=== PATIENT | male | born 1960 | race Caucasian/White ===

== ENCOUNTER 2019-11-10 09:52 | Inpatient (IN) | payer BC, OTHER, SELFPAY ==
[2019-11-10] VITALS (10 sets, daily range): BP systolic 191–267; BP diastolic 87–101; PULSE 63–86; RESP 13–18; TEMP 36.5–36.7; O2SAT 95–97; BMI 40.4; BMI 39.2
--- NOTE | 2019-11-10 09:57 | NURSING ---
NO OLD EKGS
--- NOTE | 2019-11-10 10:16 | EKG12_ITS ---
Test Reason : NEURO Blood Pressure : / mmHG Vent. Rate : 072 BPM Atrial Rate : 072 BPM P-R Int : 136 ms QRS Dur : 104 ms QT Int : 388 ms P-R-T Axes : -04 007 023 degrees QTc Int : 424 ms Normal sinus rhythm Voltage criteria for left ventricular hypertrophy Nonspecific T wave abnormality Abnormal ECG Confirmed by NIKI BRIDGES, CATIE ([id number]), news assignment editor ETHAN PISANO ([id number]) on 11/12/2019 11:25:53 AM Referred By: GABE Confirmed By:CATIE PRINCE MD
--- NOTE | 2019-11-10 10:17 | CT_ITS ---
STUDY: CT BRAIN WITHOUT CONTRAST REASON FOR EXAM: Male, 59 years old. Left facial droop RADIATION DOSAGE (If Supplied By Facility): CTDIvol = ( 44.99 ) mGy, DLP = ( 829.85 ) mGycm TECHNIQUE: Transaxial CT imaging of the brain was performed without administration of intravenous contrast material. Individualized dose optimization techniques were used for this CT. COMPARISON: None. FINDINGS: There is no acute bleed or infarct. There are normal white matter tracts. The ventricles are normal in configuration. There is no hydrocephalus. The visualized paranasal sinuses are clear. The mastoid air cells are well aerated. There is no skull fracture. CT/Brain/Head without Contrast IMPRESSION: No acute intracranial abnormality. Electronically Signed: Ralph Martin, at 10:44 EST Tel , Service support ,
--- NOTE | 2019-11-10 10:18 | ED.VIS.GEN ---
History of Present Illness Chief Complaint: Neuro S/Sx Informant: Patient Onset: Today Maximum Severity: Mild Narrative: The patient reports no past history. He presents with a reports that she noticed a left facial droop today 9 AM, he went to bed feeling fine, he reports he had lot of sinus congestion slight cough, he also stumbled today while walking and fell but did not strike his head, he is noted to have a blood pressure of 260/100 he denies a headache change in vision neck pain chest pain abdominal pain no numbness weakness paresthesias, The patient does not perceive in himself that he has a facial droop of any kind he indicates his speech is cranial nerve function his general health neurologic function are baseline, he has no history of hypertension [place] PE DVT stroke or seizure Past Medical History - Allergies and Home Meds Allergies/Adverse Reactions: Allergies Penicillins Allergy (Verified 11/10/19 10:02) Rash Primary Care Physician: Sade Olivo DO [NON-STAFF] - Past Medical History: - Smoking Status: Never smoker Review of Systems ROS: - Denies General: Denies: Chills, Fever, Sweats Eyes: Denies: Visual changes - bilaterally, Diplopia ENT: Reports: - - Congestion rhinorrhea and a slight cough that started last night. Denies: Rhinorrhea, Sore throat Cardiovascular: Denies: Chest pain, Palpitations Respiratory: Denies: Dyspnea, Cough, Dyspnea on exertion Gastrointestinal: Denies: Abdominal pain, Nausea, Vomiting, Diarrhea, Melena, Hematochezia Genitourinary: Denies: Dysuria, Hematuria, Frequency Musculoskeletal: Denies: Back pain, Extremity Pain Skin: Denies: Rash, Wounds Neurological: Denies: Headache, Weakness, Numbness Physical Exam Vital Signs/Narrative: Vital Signs Temp Pulse Resp BP Pulse Ox 11/10/19 09:55 97.8 F 79 17 267/101 H 96 General: Well nourished, Well developed, No Acute Distress Head: Normocephalic, Atraumatic Eyes: Perrl, EOMI ENT: Moist mucous membranes, No rhinorrhea, - - HEENT exam is generally unremarkable he does have a very subtle left facial droop his brow function is normal his smiling speech I function cranial nerve function otherwise normal his general medical exam neurologic exam are unremarkable his NIH would be 0-1, there is no definitive findings to suggest 7th nerve palsy Neck: Supple, Nontender Cardiovascular: Regular rate, Regular rhythm, No murmurs Respiratory: No distress, CTA bilaterally, Chest nontender Abdomen: Soft, Nontender, Nondistended, Normal bowel sounds Back: Nontender, Normal Inspection Extremities: Nontender, No edema Skin: Normal color, No rash Neurological: Alert, Oriented x3, Cranial nerves II-XII grossly intact, Normal Strength, Normal Sensation, Normal Gait, Left side facial droop, - - See above NIH 0-1. Negative for: Confused Psychological: Normal affect, Normal Mood Diagnostic/Tx/Re-eval - Medical Decision Making Given all of the above his hypertension he underwent screening ED evaluation with labs CT labetalol Patient's EKG shows a sinus rhythm rate of 70 no acute injury pattern intervals normal, the patient screening ED evaluation including labs chest x-ray head CT unremarkable, his blood pressure now was about 190/100 he is resting comfortably bed his neurologic exam is stable no changes in fact the facial droop might be slightly less prominent NIH still 0-1 at this time given all the above we talked the hospitalist seen for the management admission patient understands and agrees Admit stable Final impression left facial droop, possible stroke, hypertensive crisis ED Disposition - Plan for ED Patient: Diagnosis: Facial droop, Hypertensive crisis Referrals: Geovani,Sade, [NON-STAFF] -
[2019-11-10 10:24] LABS: Absolute Lymphocyte Count 1.74 X10^3/uL (0.83-4.51); Absolute Neutrophil Count 5.9 X10^3/uL (2.0-7.7); Basophil# 0.06 X10^3/uL; Basophil% 0.7 % (0-1); Eosinophil# 0.16 X10^3/uL; Eosinophils% 1.9 % (0-5); Hematocrit 46.5 % (40-54); Hemoglobin 15.2 g/dL (13.0-16.5); Lymphocyte # 1.74 X10^3/ul (4.0); Lymphocyte % 20.6 % (19-41); Mean Corp Hgb Conc 32.7 g/dL (32-36); Mean Corpuscular Hgb 28.1 pg (27.0-32.0); Mean Corpuscular Volume 86.1 fL (80-94); Mean Platelet Vol. 8.8 fl (6.2-12.0); Monocyte% 5.9 % (0-10); NRBC Flagged by Analyzer 0 % (0-5); Neutrophil # 5.94 X10^3/uL (2.7-7.7); Neutrophil % 70.5 % (47-70); Platelet Count 244 K/mm3 (150-450); RBC Distribution Width CV 14.2 % (11.6-14.6); RBC Distribution Width SD 44.3 fl (35.1-43.9); White Blood Count 8.4 K/mm3 (4.4-11.0)
--- NOTE | 2019-11-10 10:26 | RAD_ITS ---
STUDY: X-RAY CHEST REASON FOR EXAM: Male, 59 years old. Weakness TECHNIQUE: Frontal view of the chest COMPARISON: None. FINDINGS: The lungs are clear. There are no pleural effusions. There is no pneumothorax. The heart is enlarged. The visualized osseous structures are within normal limits. RAD/Chest 1 View (Portable) IMPRESSION: Cardiomegaly. Clear lungs. Electronically Signed: Ralph Martin, at 11:05 EST Tel , Service support ,
[2019-11-10 10:40] LABS: Anion Gap 5 (5-15); BUN 16 mg/dL (7-18); BUN/Creat Ratio 13.3 RATIO (10-20); Calcium,Total 9.3 mg/dL (8.5-10.1); Chloride 106 mmol/L (98-107); EST Glomerular Filtration Rate 65 mL/min (>60); Est Glom Filt Rate - Afr Amer 79 mL/min (>60); Estimated Creatinine Clearance 60.44 ml/min; Glucose 129 mg/dL (74-106); Potassium 3.9 mmol/L (3.5-5.1); Sodium Level 138 mmol/L (136-145)
--- NOTE | 2019-11-10 11:37 | NURSING ---
DR YORDY BERNAL
--- NOTE | 2019-11-10 11:42 | NURSING ---
PCU OBS KITTOE STROKE, HYPERTENSION
--- NOTE | 2019-11-10 11:44 | HP.PCM_ITS ---
Problem List (1) Facial droop Status: Acute (2) Hypertensive crisis Status: Acute (3) BMI greater than 40 Status: Chronic History of Present Illness Date of Admission: 11/10/19 Chief Complaint: Left facial droop The patient is a 59 year old M in relatively good health on no chronic medications who presented with left facial droop. Patient states he woke up on the morning of his presentation when his noticed that he had a facial droop. Patient also states he had difficulty walking and apparently fell. Patient and spoke to the daughter via face time who encourage patient to present to the emergency department. Patient upon arrival to the emergency department was noted to have markedly elevated systolic blood pressure of 260. On further questioning patient denied any subjective focal weakness no numbness. CT of the head obtained came back unremarkable subsequently admitted to a monitored bed for further evaluation Past Medical History Past Medical History (Chronic Problems): Chronic Problems BMI greater than 40 (Chronic) Allergies Penicillins Allergy (Verified 11/10/19 10:02) Rash Home Medications: Ambulatory Orders Medication Instructions Recorded NK 11/10/19 Smoking Status: Never smoker - *Family History Paternal History Items: Heart Disease - of [place] at age 67 Review of Systems Constitutional: Denies: Anorexia, Chills, Fever, Night Sweats, Weight Change HEENT: Denies: Head Aches, Sinus Congestion, Sinus Drainage Cardiovascular: Denies: Chest Pain, Orthopnea, Palpitations, Paroxysmal Noc. Dyspnea Respiratory: Denies: Cough, Shortness of breath at rest, Shortness of breath upon exertion, Sputum production Gastrointestinal: Denies: Abdominal Pain, Hematemesis, Hematochezia, Nausea, Melena, Vomiting Genitourinary: Denies: Dysuria, Frequency, Hematuria, Urgency Musculoskeletal: Denies: Joint Pain, Joint Tenderness Skin: Denies: Rash Neurological: Reports: Incoordination. Denies: Focal weakness, Numbness, Tingling Psychiatric: Denies: Homicidal Ideations, Suicidal Ideations Hematologic/ Lymphatic: Denies: Easy Bruising, Easy Bleeding VTE Information - Inpt Only VTE Present on Admission: No VTE Mechan Device Prophylaxis: SCD's VTE Pharm Prophylaxis ordered?: Yes Patient Problems: Active and Suspected Problems Facial droop (Acute) Hypertensive crisis (Acute) Objective: GENERAL: cooperative HEENT: Atraumatic; EYES; Anicteric, Normal Conjunctiva NECK; supple, normal thyroid, RESPIRATORY: Diminished to auscultation CARDIOVASCULAR: Regular S1 S2, GI: soft, normoactive bowel sounds, : No Renal angle tenderness; EXTREMITIES: No edema, no clubbing, MUSCULOSKELETAL: no muscle waisting NEURO: Left facial droop patient is however able to close both eyes tightly SKIN: No Rash PSYCH; Flat affect - Physical Exam Vitals/I&O's: Vital Signs Temp Pulse Resp BP Pulse Ox 97.8 F 63 14 192/96 H 95 11/10/19 09:55 11/10/19 11:15 11/10/19 11:15 11/10/19 11:15 11/10/19 11:15 Oxygen Delivery Method Room Air Weight: 117 kg Body Mass Index (BMI) 40.4 Finger Stick Blood Glucose 129 Laboratory Results 11/10/19 10:16: WBC 8.4, RBC 5.40, Hgb 15.2, Hct 46.5, MCV 86.1, MCH 28.1, MCHC 32.7, RDW Std Deviation 44.3 H, RDW Coeff of Melodie 14.2, Plt Count 244, MPV 8.8, Immature Gran % (Auto) 0.400, Neut % (Auto) 70.5 H, Lymph % (Auto) 20.6, [place] % (Auto) 5.9, Eos % (Auto) 1.9, Baso % (Auto) 0.7, Absolute Neuts (auto) 5.9, Absolute Lymphs (auto) 1.74, Nucleated RBC % 0 11/10/19 10:16: Sodium 138, Potassium 3.9, Chloride 106, Carbon Dioxide 27.0, Anion Gap 5, BUN 16, Creatinine 1.20, Estim Creat Clear Calc 60.44, Est GFR (MDR D) Af Amer 79, Est GFR (MDRD) Non-Af 65, BUN/Creatinine Ratio 13.3, Glucose 129 H, Calcium 9.3, Troponin I < 0.015 Assessment/Plan All Active Problems Facial droop (Acute) Hypertensive crisis (Acute) Patient is a 59-year-old gentleman presented with left facial droop as well as markedly elevated blood pressure 1. Left facial droop ?Deferred diagnoses include acute CVA versus Owusu's palsy. Patient has been admitted to a monitored bed requested for neurochecks every 4 hours. As part of patient's management ordered CTA of the head and neck as well as MRI of the brain. Patient was started on aspirin and statin therapy (patient stated he is not a fan of statins will therefore discontinue if acute CVA is ruled out). Also did request for 2D echo and consult placed to teleneurology 2. Hypertensive crisis ?With patient being worked up for possible stroke while out for permissive systolic blood pressure of 220. If acute CVA is ruled out patient blood pressure will be treated aggressively 3. Morbid obesity with BMI of 40.4 ?Weight loss advised 4. DVT prophylaxis ?Lovenox Code Visit OBSV E&M: [id number] Initial observation care L3
--- NOTE | 2019-11-10 11:58 | ED.RN ---
Per Dr Jeff pt had an inital NIH of 1 with only l facial droop. Uncertain time of onset. No stroke team called and Dr Jeff stated he would do a neuro consult instead of stroke team
--- NOTE | 2019-11-10 12:05 | MRI_ITS ---
We are attempting to reach an attending provider to discuss findings. An addendum with communication details will be sent when the communication is complete. STUDY: MRI BRAIN WITHOUT CONTRAST REASON FOR EXAM: Male, 59 years old. New LEFT facial droop TECHNIQUE: Standardized multiplanar fat and water weighted pulse sequences were obtained. COMPARISON: CTA brain November 10, 2019 FINDINGS: Normal size of the ventricles and extra-axial spaces for the patient''s age. Normal white matter tracts of the supratentorial brain. Restricted diffusion neostriatum on right. Normal bilateral basal ganglia. Normal thalami. There is no extra-axial fluid accumulation. Normal flow voids within the major intracranial circulation suggesting patency by spin echo criteria. Normal sella turcica, pituitary gland, infundibular stalk, optic chiasm and hypothalamus. Normal tectal plate and pineal gland. Normal midbrain, vitaliy and medulla. Normal cerebellum. Normal basal cisterns. Normal bilateral temporal bones. Normal bilateral internal auditory canals. No demonstrated orbital abnormality, within the constraints of a routine brain study. Normal visualized paranasal sinuses. Normal calvarium and skull base. Normal visualized soft tissue structures. Normal visualized upper cervical spine. MRI/Brain without Contrast IMPRESSION: Acute or subacute infarct neostriatum on the right Electronically Signed: Gigi Gonzalez MD at 16:40 EST , Service support ,
--- NOTE | 2019-11-10 12:07 | ECHOD_ITS ---
Reason For Study: TIA/CVA Procedure This was a 2D Doppler, Color Flow transthoracic echocardiogram. Exam performed portable in patient room. Left Ventricle Normal LV size. Left ventricular systolic function is normal. The estimated ejection fraction is 60 %. Stage 1 diastolic dysfunction. No regional wall motion abnormalities noted. Right Ventricle Normal RV size. Normal systolic function. Atria Normal left atrium. Normal right atrium. Bubble contrast study negative for right to left interatrial shunt. Mitral Valve Normal mitral valve. Tricuspid Valve Normal tricuspid valve. Aortic Valve Normal aortic valve. Great Vessels Normal aortic root. The pulmonary artery is normal size. Normal inferior vena cava. Pericardium/Pleural No pericardial effusion. Medication Performed a rapid injection of agitated mix of 9 cc saline and 1cc air to assess for atrial septal defect. MMode/2D Measurements & Calculations LVIDd: 3.9 cm IVSd: 1.2 cm Ao root diam: 3.3 cm LVIDs: 2.8 cm LVPWd: 1.3 cm RVDd: 3.7 cm FS: 28.3 % LAV(MOD-bp): 45.7 ml LVAd ap4: 29.1 cm2 SV(MOD-sp4): 56.7 ml LAV(MOD-bp) Indexed: 20.3 ml/m2 EDV(MOD-sp4): 88.1 ml LAV(MOD-sp2): 47.8 ml EDV(sp4-el): 91.6 ml LAV(MOD-sp4): 38.8 ml LVAs ap4: 15.1 cm2 ESV(MOD-sp4): 31.4 ml ESV(sp4-el): 31.4 ml EF(MOD-sp4): 64.4 % EF(sp4-el): 65.7 % SV(sp4-el): 60.2 ml LA A4 area: 14.3 cm2 LA dimension(2D): 3.5 cm RA A4 area: 8.6 cm2 Doppler Measurements & Calculations MV E max caden: 77.4 cm/sec Lat Peak E' Caden: 8.5 cm/sec Med Peak E' Caden: 5.4 cm/sec MV A max caden: 83.8 cm/sec E/E' lat: 9.1 E/E' med: 14.4 MV E/A: 0.92 Ao V2 max: 132.0 cm/sec LV V1 max: 117.4 cm/sec PA V2 max: 101.1 cm/sec Ao max P.0 mmHg LV V1 max P.5 mmHg Ao V2 mean: 87.6 cm/sec Ao mean P.4 mmHg Ao V2 VTI: 28.0 cm Interpretation Summary Normal LV size. Left ventricular systolic function is normal. The estimated ejection fraction is 60 %. Stage 1 diastolic dysfunction. Bubble contrast study negative for right to left interatrial shunt. Ordering Physician: Cristian Thurman Referring Physician: Maria Teresa Gregorio Performed By: Lisa Hill RDCS, RVT
--- NOTE | 2019-11-10 12:07 | CT_ITS ---
STUDY: CTA HEAD AND NECK WITH CONTRAST REASON FOR EXAM: Male, 59 years old. NEURO DEFICIT RADIATION DOSAGE (If Supplied By Facility): CTDIvol = ( 15.03 ) mGy, DLP = ( 803.47 ) mGycm TECHNIQUE: CT angiography was performed with a multi-detector CT scanner. Data acquisition was obtained from the skull base through the vertex following intravenous administration of 100cc ISOVUE 370. MIP images were reconstructed from the axial data set. Post-processing of the angiographic images was performed, with multiplanar reformation and 3D reconstruction. Degree of stenosis (when present) measured utilizing NASCET criteria. Individualized dose optimization techniques were used for this CT. COMPARISON: No relevant priors. FINDINGS: Normal bilateral petrous carotid arteries. Normal right cavernous carotid artery with a normal supraclinoid bifurcation. Normal left cavernous carotid artery with a normal supraclinoid bifurcation. There is hypoplastic development of the right A1 segment of the anterior cerebral arteries with an atretic but intact artery. Normal left A1 segments of the anterior cerebral artery. Normal intact anterior communicating artery (ACOM). Normal bilateral A2 segments of the anterior cerebral arteries. Normal right M1 and M2 segments of the middle cerebral arteries, with a normal M1 bifurcation. Normal left M1 and M2 segments of the middle cerebral arteries, with a normal M1 bifurcation. There is non-visualization of the right posterior communicating artery (PCOM). Normal left posterior communicating artery (PCOM). There is a small atretic right vertebral artery with a dominant left vertebral artery. There is mild atherosclerosis at the origin of the left vertebral artery without hemodynamically significant stenosis. Normal basilar artery with a normal basilar bifurcation. The visualized bilateral superior cerebellar (SCA) arteries are normal. Normal bilateral P1, P2 and visualized P3 segments of the posterior cerebral arteries. There is no demonstrated aneurysm of the [place] of [place]. There is no demonstrated abnormality of the visualized brain. AORTIC ARCH: Normal visualized aortic arch. Normal origins of the brachiocephalic, left common carotid, and left subclavian arteries. RIGHT CAROTID ARTERIES: Slight amount of noncalcified plaque along the mid right common carotid artery without hemodynamically significant stenosis. There is mild atherosclerotic plaque formation with minimal narrowing of the right carotid bulb. There is mild atherosclerotic plaque formation of the origin of the right internal carotid artery with 30% stenosis. There is atherosclerotic tortuous elongation of the cervical portion of the right internal carotid artery. Normal origin of the right external carotid artery (ECA). LEFT CAROTID ARTERIES: There is atherosclerotic tortuous elongation of the left common carotid artery. There is mild atherosclerotic plaque formation with minimal narrowing of the left carotid bulb. Normal origin of the left internal carotid (ICA) artery without a hemodynamically significant stenosis. Normal visualized cervical portion of the left internal carotid artery. Normal origin of the left external carotid artery (ECA). VERTEBRAL ARTERIES: There is enhancement within the bilateral vertebral arteries with a small right vertebral artery, and a dominant left vertebral artery. CT/CTA Head AND Neck W/ Contrast IMPRESSION: 1. No large vessel occlusion or intracranial aneurysm. 2. Mild carotid atherosclerosis without hemodynamically significant stenosis, details above. No carotid artery dissection. Electronically Signed: Den Little MD ([place]) at 14:13 EST , Service support ,
[2019-11-10] MEDS: 0.9% Normal Saline 1,000 ML 100 ML IV (15:49)
[2019-11-10] MEDS: Enoxaparin 40 MG/0.4 ML Syringe SC (15:50)
[2019-11-10] MEDS: Atorvastatin Calcium 80 MG Tablet PO (21:44)
[2019-11-11] VITALS (17 sets, daily range): BP systolic 144–220; BP diastolic 62–97; PULSE 60–85; RESP 16–18; TEMP 36.4–37.1; O2SAT 94–98; BMI 39.2
[2019-11-11] MEDS: 0.9% Normal Saline 1,000 ML 100 ML IV ×2 (00:54→10:52)
[2019-11-11 05:55] LABS: Absolute Lymphocyte Count 2.14 X10^3/uL (0.83-4.51); Absolute Neutrophil Count 6.2 X10^3/uL (2.0-7.7); Basophil# 0.07 X10^3/uL; Basophil% 0.7 % (0-1); Eosinophil# 0.23 X10^3/uL; Eosinophils% 2.5 % (0-5); Hematocrit 42.1 % (40-54); Hemoglobin 13.7 g/dL (13.0-16.5); Lymphocyte # 2.14 X10^3/ul (4.0); Lymphocyte % 22.9 % (19-41); Mean Corp Hgb Conc 32.5 g/dL (32-36); Mean Corpuscular Hgb 27.9 pg (27.0-32.0); Mean Corpuscular Volume 85.7 fL (80-94); Monocyte# 0.67 X10^3/uL; Monocyte% 7.2 % (0-10); NRBC Flagged by Analyzer 0 % (0-5); Neutrophil % 66.4 % (47-70); Platelet Count 225 K/mm3 (150-450); RBC Distribution Width CV 14.3 % (11.6-14.6); RBC Distribution Width SD 45.1 fl (35.1-43.9); Red Blood Count 4.91 M/mm3 (4.6-6.2); White Blood Count 9.3 K/mm3 (4.4-11.0)
[2019-11-11 06:27] LABS: Anion Gap 6 (5-15); BUN 13 mg/dL (7-18); BUN/Creat Ratio 11.8 RATIO (10-20); Calcium,Total 8.7 mg/dL (8.5-10.1); Chloride 106 mmol/L (98-107); Cholesterol 223 mg/dL (200); EST Glomerular Filtration Rate 72 mL/min (>60); Est Glom Filt Rate - Afr Amer 87 mL/min (>60); Estimated Creatinine Clearance 65.93 ml/min; Glucose 113 mg/dL (74-106); High Density Lipoprotein 32 mg/dL; Potassium 4.1 mmol/L (3.5-5.1); Sodium Level 137 mmol/L (136-145); Triglycerides 217 mg/dL; Very Low Density Lipoprotein 43 mg/dL (5-40)
[2019-11-11] MEDS: Enoxaparin 40 MG/0.4 ML Syringe SC (08:13)
[2019-11-11] MEDS: Aspirin 81 MG TAB.CHEW PO (08:13)
--- NOTE | 2019-11-11 11:18 | CASEMGMT ---
Social Work Consult: Positive for Stroke, PHQ-9 assessment. Informant: Medical team. Met with patient in room. Introduced self as well as bilingual social worker role. Patient agreeable to meet with this bilingual social worker. Educated patient that a decrease in mood is normal after having a stroke. Completed PHQ-9 assessment with a score of /, no depression noted. Patient stating to have support from family and plans to discharge to home. Patient presenting with a pleasant affect. Александр CRENSHAW, INGE
[2019-11-11] MEDS: amLODIPine 10 MG Tablet PO (12:29)
[2019-11-11] MEDS: hydrALAZINE 20 MG/ML Vial 5 MG IV ×2 (12:31→20:19)
[2019-11-11] MEDS: 0.9% Saline Lock 10 ML Syringe IV (12:32)
--- NOTE | 2019-11-11 14:10 | CASEMGMT ---
Addendum entered by Luz Marina Haddad 11/11/19 16:11: Script for OP therapy obtained from Angelica Sierra NP, and given to pt/. Addendum entered by Luz Marina Haddad 11/11/19 15:25: PT/OT evals reviewed. OP therapy recommended. To room to discuss with pt. also present at bedside. Pt and agreeable to OP therapy. They were made aware script can be taken to any OP therapy facility of their choice. They voice understanding. Will obtain script form Dr Ding and give to pt/. Original Note: RN CM LICENSED JOURNEY[employer]ICIAN CM to room to meet with patient for initial transition planning/care coordination assessment. RN CM introduced self and role at [facility]. Pt voices understanding and consents to assessment at this time. Pt sitting up in recliner chair in no distress at this time. Pt is A/O at this time and answers all questions appropriately. Care providers, pharmacy, and demographics verified/updated at this time. PCP: Dr Gregorio is listed as PCP, but pt states he has not been in to see her for years. Pt made aware he may no longer be considered a patient with them. He states his goes ot her and he would like to f/u with her if she will be able to see him. [place] made aware and [facility] will contact Dr Gregorio's office to inquire if he is still an active pt with them and if not, to see if she can take him as a new patient. Specialists: None. Preferred [facility]acy: [facility] Insurance: [place] Prescription Benefit: Yes Living Will/HPOA: does not have LW or HCPOA . Provided with information on Advanced directives but [facility] does not want to talk with SW at this time to complete paperwork. Given Social Service rac card with number to call if chooses in the future to utilize [facility] social work for advanced directive completion. Pt voices understanding. Living Arrangements: Lives with his in one-story home w/basement. was independent with ADL's and IADL's prior to admission. Transportation: Pt, . Denies transportation concerns. DME: Denies using any DME and denies needs. HHC/SNF: No history of either. Denies needs for HHC. PT/OT evals pending. Will follow up with pt once evals completed. Pt wishes to return home and states has no concerns with going home at time of discharge. . CM to follow for any discharge planning/needs. Pt voices no further concerns/needs at this time. Advised pt to ask for CM if any further questions/concerns/needs arise. Voices understanding. PLAN: Home. Follow PT/OT evals. May need script for OP therapy. Bradley MADRIDN RN CM
--- NOTE | 2019-11-11 15:16 | PN_ITS ---
Patient Problems: Active and Suspected Problems Facial droop (Acute) Hypertensive crisis (Acute) Reason for Visit: Follow-up on acute stroke and hypertensive urgency Subjective: Patient was seen and examined. He complains of lack of sleep. Denies chest pain, no progressive weakness, or dizziness. Vitals/I&O's: Vital Signs Temp Pulse Resp BP Pulse Ox 98.3 F 80 16 187/83 H 96 11/11/19 13:09 11/11/19 14:57 11/11/19 13:09 11/11/19 13:09 11/11/19 13:09 Oxygen Delivery Method Room Air Weight: 113.6 kg Body Mass Index (BMI) 39.2 Finger Stick Blood Glucose 129 Intake and Output for Last 24 Hours 11/09/19 11/10/19 11/11/19 23:59 23:59 23:59 Intake Total 720 / 720 2265.00 / 2265.00 Balance 720 / 720 2265.00 / 2265.00 General: Alert, Oriented x3, Cooperative, No apparent distress HEENT: Atraumatic, PERRLA, EOMI, Normocephalic Oral: Moist Mucosa Neck: Supple Lungs: Clear to auscultation, Normal air movement Cardiovascular: Regular rate, Regular Rhythm, Normal S1, Normal S2, No murmurs Abdomen: Bowel Sounds Present, Soft, Non Tender, Non-Distended, No Hepato- splenomegaly Extremities: No edema Skin: No rashes Musculoskeletal: No Tenderness to Palpation of Joints or Extremities Lymphatic: No Cervical, Supraclavicular, or Inguinal Adenopathy Neurological: Cranial nerves II-XII grossly intact, Neuro grossly intact Psych/Mental Status: Normal Affect, Appropriate Laboratory Results 11/11/19 05:17: WBC 9.3, RBC 4.91, Hgb 13.7, Hct 42.1, MCV 85.7, MCH 27.9, MCHC 32.5, RDW Std Deviation 45.1 H, RDW Coeff of Melodie 14.3, Plt Count 225, MPV 9.0, Immature Gran % (Auto) 0.300, Neut % (Auto) 66.4, Lymph % (Auto) 22.9, [place] % (Auto) 7.2, Eos % (Auto) 2.5, Baso % (Auto) 0.7, Absolute Neuts (auto) 6.2, Absolute Lymphs (auto) 2.14, Nucleated RBC % 0 11/11/19 05:17: Sodium 137, Potassium 4.1, Chloride 106, Carbon Dioxide 25.0, Anion Gap 6, BUN 13, Creatinine 1.10, Estim Creat Clear Calc 65.93, Est GFR (MDRD) Af Amer 87, Est GFR (MDRD) Non-Af 72, BUN/Creatinine Ratio 11.8, Glucose 113 H, Calcium 8.7, Triglycerides 217 H, Cholesterol 223 H, LDL Cholesterol 148 H, VLDL Cholesterol 43 H, HDL Cholesterol 32 L 11/11/19 05:17: Hemoglobin A1c 6.0 Current Medications Acetaminophen (Tylenol) 650 mg PO Q4H PRN PRN PRN Reason: Headache/Temp>99.6F Acetaminophen (Tylenol Liquid) 650 mg NG Q4H PRN PRN PRN Reason: Headache/Temp>99F Al Hydroxide/Mg Hydroxide (Mylanta Ii) 30 ml PO Q6H PRN PRN PRN Reason: Gastric Burning Amlodipine Besylate (Norvasc) 10 mg PO DAILY [facility] Last Admin: 11/11/19 12:29 Dose: 10 mg Documented by: Aspirin (Aspirin, Baby) 81 mg PO DAILY@0800 [facility] Last Admin: 11/11/19 08:13 Dose: 81 mg Documented by: Atorvastatin Calcium (Lipitor) 80 mg PO QHS [facility] Last Admin: 11/10/19 21:44 Dose: 80 mg Documented by: Enoxaparin Sodium (Lovenox) 40 mg SC DAILY [facility] Last Admin: 11/11/19 08:13 Dose: 40 mg Documented by: Famotidine (Pepcid) 20 mg PO BID [facility] Last Admin: 11/11/19 08:13 Dose: Not Given Documented by: Hydralazine HCl (Apresoline Iv) 5 mg IV Q6H PRN PRN PRN Reason: BLOOD PRESSURE Last Admin: 11/11/19 12:31 Dose: 5 mg Documented by: Magnesium Hydroxide (Milk Of Magnesia) 30 ml PO DAILY PRN PRN PRN Reason: Constipation Melatonin (Melatonin) 3 mg PO QHS PRN PRN PRN Reason: INSOMNIA Nitroglycerin (Nitrostat) 0.4 mg SUBLINGUAL Q5M PRN PRN Reason: CARDIAC/CHEST PAIN Nutritional Formula (Lactose Free) (Ensure Enlive) 120 ml PO 4X/DAY [facility] Last Admin: 11/11/19 13:10 Dose: Not Given Documented by: Ondansetron HCl (Zofran) 4 mg IV Q8H PRN PRN PRN Reason: NAUSEA/VOMITING Promethazine HCl (Phenergan) 25 mg IM Q6H PRN PRN PRN Reason: Breakthrough Nausea/Vomiting Sodium Chloride () 10 - 40 ml IV UD PRN PRN Reason: SALINE FLUSH Last Admin: 11/11/19 12:32 Dose: 10 ml Documented by: STROKE Vital Signs/Narrative: Vital Signs Temp Pulse Resp BP Pulse Ox 11/11/19 14:57 80 11/11/19 13:09 98.3 F 66 16 187/83 H 96 11/11/19 12:31 74 220/93 H 11/11/19 12:08 98.3 F 74 16 220/93 H 97 Medical Necessity - Tobacco Use Smoking Status: Never smoker Assessment/Plan All Active Problems Facial droop (Acute) Hypertensive crisis (Acute) 1. Acute right lacunar infarct, on aspirin, statin Lipid profile not controlled - Tchol 228, LDL 148, HDL 32 HgbA1c is 6.0, 2d-ECHO shows EF 60%, stage I diastolic dysfunction Telemetry shows NSR 2. Hypertensive urgency, BP elevated, >24 hrs passed on permissive hypertension Will start on amlodipine 10mg daily, Carvedilol 6.25mg BID, prn hydralazine 3. Hyperlipidemia, on high dose statin 4. Morbid obesity, BMI 39.2, lifestyle modification recommended 5. DVT PPx- Lovenox SC Code Visit Inpatient E&M: 42193 Subs Hosp L2
--- NOTE | 2019-11-11 16:17 | CHAPLAIN ---
Type of Pastoral Visit _x__ Initial Visit ___ Follow-up Visit ___ On-call Visit ___ General Patient Visit ___ Spiritual Assessment ___ Family Conference ___ Bereavement ___ Rapid Response ___ Code Blue ___ Other (describe below) Pastoral Care Referral From _x__ Patient _x__ Family ___ Nurse ___ Physician ___ Vacation Sales Advisor ___ Tenderizer Tender ___ Other (describe below) Sacrament/Intervention _x__ Active listening ___ Anointing ___ Rastafari ___ Bereavement ___ Communion _x__ Suzette exploration ___ _x__ Life review _x__ Prayer ___ Reconciliation ___ Sacrament of Sick _x__ Supportive presence ___ Wedding ___ Other (describe below) Pastoral Comments
[2019-11-11] MEDS: Carvedilol 6.25 MG Tablet PO ×2 (16:38→21:54)
[2019-11-11] MEDS: Atorvastatin Calcium 80 MG Tablet PO (21:54)
[2019-11-12] VITALS (9 sets, daily range): BP systolic 146–168; BP diastolic 74–86; PULSE 50–81; RESP 16–17; TEMP 36.3–36.9; O2SAT 94–97; BMI 39.2
[2019-11-12] MEDS: hydrALAZINE 20 MG/ML Vial 5 MG IV (02:44)
[2019-11-12] MEDS: Aspirin 81 MG TAB.CHEW PO (08:41)
[2019-11-12] MEDS: Carvedilol 6.25 MG Tablet PO (08:42)
[2019-11-12] MEDS: amLODIPine 10 MG Tablet PO (08:42)
[2019-11-12] MEDS: 0.9% Saline Lock 10 ML Syringe IV (10:15)
--- NOTE | 2019-11-12 11:17 | PCM.DC ---
- Discharge Diagnoses Current Active Problems: Current Active and Chronic Problems Facial droop (Acute) Hypertensive crisis (Acute) BMI greater than 40 (Chronic) Reason(s) for Visit for Discharge Instructions: Facial droop, Acute CVA You will use the following diet at home:: Cardiac Your food should be the consistency of: Regular Your liquids should be the consistency of: Regular/Thin Discharge Activity: Return to Normal Activity Additional Instructions: Take all your medications as prescribed. Continue on a heart healthy diet - low salt, low fat. Continue to remain active. Continue with outpatient therapy. Keep a log of your BP daily and show it to your primary care doctor. You need a repeat blood work to check on your cholesterol in 6-8 weeks. Follow-up with your primary care doctor within 2 weeks. Let your doctor know if your BP is persistently above 160/90. Allergies/Adverse Reactions: Allergies Penicillins Allergy (Verified 11/10/19 10:02) Rash Medications to take at Discharge Amlodipine [Norvasc] 10 mg PO DAILY 30 Days #30 tab 11/12/19 Aspirin [Aspirin, Baby] 81 mg PO DAILY@0800 30 Days #30 tab.chew 11/12/19 Atorvastatin Calcium [Lipitor] 80 mg PO QHS 30 Days #30 tab 11/12/19 Carvedilol [Coreg (Beta Tim)] 6.25 mg PO BID 30 Days #30 tab 11/12/19 Famotidine [Pepcid] 20 mg PO DAILY 30 Days #30 tab 11/12/19 The following prescriptions were given: Aspirin [Aspirin, Baby] 81 mg PO DAILY@0800 30 Days #30 tab.chew Transmission Status: Received by [facility] Carvedilol [Coreg (Beta Tim)] 6.25 mg PO BID 30 Days #30 tab Transmission Status: Received by [facility] Atorvastatin Calcium [Lipitor] 80 mg PO QHS 30 Days #30 tab Transmission Status: Received by [facility] Amlodipine [Norvasc] 10 mg PO DAILY 30 Days #30 tab Transmission Status: Received by [facility] Famotidine [Pepcid] 20 mg PO DAILY 30 Days #30 tab Transmission Status: Received by [facility] Primary Care Physician: Sade Olivo, DO [NON-STAFF] - Please follow up with your Primary Care Physician in: within 1-2 weeks Test Results: Test results from this visit will be discussed in further detail at your follow-up appointment, if applicable. Please Follow Up With: Maria Teresa Gregorio, DO Please Follow Up With: Dr. Buckley When: in 2-4 weeks Proposed Discharge Date: 11/12/19
--- NOTE | 2019-11-12 12:04 | PCM.DC.SUM ---
Discharge Date and Diagnosis Date of Admission: 11/10/19 Date of Discharge: 11/12/19 - Primary Discharge Diagnosis Active Problems Acute right lacunar infarct Hypertensive urgency Hyperlipidemia Morbid obesity - Secondary Discharge Diagnosis Chronic Problems BMI greater than 40 (Chronic) Hospital Course and Treatment Imaging Results: Clinical Impression(s) from Imaging Studies Brain CT 11/10/19 10:17 IMPRESSION: No acute intracranial abnormality. Electronically Signed: Ralph Martin, at 10:44 EST Tel , Service support , Chest X-Ray 11/10/19 10:26 IMPRESSION: Cardiomegaly. Clear lungs. Electronically Signed: Ralph Martin, at 11:05 EST Tel , Service support , Brain MRI 11/10/19 12:05 IMPRESSION: Acute or subacute infarct neostriatum on the right Electronically Signed: Gigi Gonzalez MD at 16:40 EST , Service support , ADDENDUM: 11/10/19 1704 IMPRESSION: Acute or subacute infarct neostriatum on the right N.B. : The above information has been verbally conveyed by Gigi Gonzalez MD to Cristian Thurman MD, on 11/10/2019 16:57:19 (ET). Electronically Signed: Gigi Gonzalez MD at 16:40 EST , Service support , Head/Neck CTA 11/10/19 12:07 IMPRESSION: 1. No large vessel occlusion or intracranial aneurysm. 2. Mild carotid atherosclerosis without hemodynamically significant stenosis, details above. No carotid artery dissection. Electronically Signed: Den Little MD ([place]) at 14:13 EST , Service support , Teleneurology Operations: None Procedures: 2-D Echocardiogram Summary of Care Provided: The patient is a 59 year old M with no significant PMHx who comes presents with left facial droop without any subjective focal weakness or no numbness. His BP on admission was elevated. His initial CT brain showed no intracranial bleed or acute stroke. An MRI of brain showed acute right lacunar infarct. Teleneurology was consulted and felt this was related to uncontrolled hypertension. Lipid profile was uncontrolled - Total cholesterol 228, LDL 148, HDL 32. HgbA1c is 6.0, 2d-ECHO shows EF 60%, stage I diastolic dysfunction. Telemetry shows normal sinus rhythm. He was started on carvedilol and amlodipine. He will follow-up with neurology in the outpatient within 2 weeks. He will follow-up with his BP with a log of blood pressures. Subjective: On the day of discharge, patient was seen and examined. Denied any new complaints. Objective: Physical exam: General: Alert, Oriented x3, Cooperative, No apparent distress HEENT: Atraumatic, PERRLA, EOMI, Normocephalic Oral: Moist Mucosa Neck: Supple Lungs: Clear to auscultation, Normal air movement Cardiovascular: Regular rate, Regular Rhythm, Normal S1, Normal S2, No murmurs Abdomen: Bowel Sounds Present, Soft, Non Tender, Non-Distended, No Hepato-splenomegaly Extremities: No edema Skin: No rashes Musculoskeletal: No Tenderness to Palpation of Joints or Extremities Lymphatic: No Cervical, Supraclavicular, or Inguinal Adenopathy Neurological: Cranial nerves II-XII grossly intact, Neuro grossly intact Psych/Mental Status: Normal Affect, Appropriate - Physical Exam Vitals/I&O's: Vital Signs Temp Pulse Resp BP Pulse Ox 97.3 F L 81 16 146/76 H 95 11/12/19 08:38 11/12/19 08:38 11/12/19 08:38 11/12/19 10:17 11/12/19 08:38 Oxygen Delivery Method Room Air Weight: 113.6 kg Body Mass Index (BMI) 39.2 Finger Stick Blood Glucose 129 Intake and Output for Last 24 Hours 11/10/19 11/11/19 11/12/19 23:59 23:59 23:59 Intake Total 720 / 720 3685.00 / 3685.00 100 / 100 Balance 720 / 720 3685.00 / 3685.00 100 / 100 Laboratory Results 11/11/19 05:17: Hemoglobin A1c 6.0 Current Medications Acetaminophen (Tylenol) 650 mg PO Q4H PRN PRN PRN Reason: Headache/Temp>99.6F Acetaminophen (Tylenol Liquid) 650 mg NG Q4H PRN PRN PRN Reason: Headache/Temp>99F Al Hydroxide/Mg Hydroxide (Mylanta Ii) 30 ml PO Q6H PRN PRN PRN Reason: Gastric Burning Amlodipine Besylate (Norvasc) 10 mg PO DAILY [facility] Last Admin: 11/12/19 08:42 Dose: 10 mg Documented by: Aspirin (Aspirin, Baby) 81 mg PO DAILY@0800 [facility] Last Admin: 11/12/19 08:41 Dose: 81 mg Documented by: Atorvastatin Calcium (Lipitor) 80 mg PO QHS [facility] Last Admin: 11/11/19 21:54 Dose: 80 mg Documented by: Carvedilol (Coreg) 6.25 mg PO BID [facility] Last Admin: 11/12/19 08:42 Dose: 6.25 mg Documented by: Enoxaparin Sodium (Lovenox) 40 mg SC DAILY [facility] Last Admin: 11/12/19 08:44 Dose: Not Given Documented by: Famotidine (Pepcid) 20 mg PO BID [facility] Last Admin: 11/12/19 08:41 Dose: Not Given Documented by: Hydralazine HCl (Apresoline Iv) 5 mg IV Q6H PRN PRN PRN Reason: BLOOD PRESSURE Last Admin: 11/12/19 02:44 Dose: 5 mg Documented by: Magnesium Hydroxide (Milk Of Magnesia) 30 ml PO DAILY PRN PRN PRN Reason: Constipation Melatonin (Melatonin) 3 mg PO QHS PRN PRN PRN Reason: INSOMNIA Nitroglycerin (Nitrostat) 0.4 mg SUBLINGUAL Q5M PRN PRN Reason: CARDIAC/CHEST PAIN Nutritional Formula (Lactose Free) (Ensure Enlive) 120 ml PO 4X/DAY [facility] Last Admin: 11/12/19 08:45 Dose: Not Given Documented by: Ondansetron HCl (Zofran) 4 mg IV Q8H PRN PRN PRN Reason: NAUSEA/VOMITING Promethazine HCl (Phenergan) 25 mg IM Q6H PRN PRN PRN Reason: Breakthrough Nausea/Vomiting Sodium Chloride () 10 - 40 ml IV UD PRN PRN Reason: SALINE FLUSH Last Admin: 11/12/19 10:15 Dose: 10 ml Documented by: Discharge Diet: Low fat/ Low Cholesterol, 2000 mg Sodium Diet Discharge Activity: Return to Normal Activity Home Medications: Medications to take at Discharge Amlodipine [Norvasc] 10 mg PO DAILY 30 Days #30 tab 11/12/19 Aspirin [Aspirin, Baby] 81 mg PO DAILY@0800 30 Days #30 tab.chew 11/12/19 Atorvastatin Calcium [Lipitor] 80 mg PO QHS 30 Days #30 tab 11/12/19 Carvedilol [Coreg (Beta Tim)] 6.25 mg PO BID 30 Days #30 tab 11/12/19 Famotidine [Pepcid] 20 mg PO DAILY 30 Days #30 tab 11/12/19 Following Prescrptions Were Given to Patient: Aspirin [Aspirin, Baby] 81 mg PO DAILY@0800 30 Days #30 tab.chew Transmission Status: [facility] Carvedilol [Coreg (Beta Tim)] 6.25 mg PO BID 30 Days #30 tab Transmission Status: Received by [facility] Atorvastatin Calcium [Lipitor] 80 mg PO QHS 30 Days #30 tab Transmission Status: Received by [facility] Amlodipine [Norvasc] 10 mg PO DAILY 30 Days #30 tab Transmission Status: [facility] Famotidine [Pepcid] 20 mg PO DAILY 30 Days #30 tab Transmission Status: [facility] Primary Care Physician: Sade Olivo DO [NON-STAFF] - Please follow up with your Primary Care Physician in: within 1-2 weeks Please Follow Up With: Maria Teresa Gregorio DO Please Follow Up With: Dr. Buckley When: in 2-4 weeks Disposition: Home Minutes spent on discharge:: 40 Patient Condition:: Stable Medical Necessity - Tobacco Use Smoking Status: Never smoker Tobacco Use: Non-smoker Meaningful Use Info Meaningful Use Diagnoses (Choose all that apply): Ischemic CVA - CVA Therapy Assessed for PT,OT and/or ST?: Yes - Ischemic Stroke Antithrombotic order at d/c?: No Reason antithrombotic not ordered: Treatment not Indicated Dx of Atrial fib/flutter?: No Anticoagulant at discharge?: No Reason anticoagulant not ordered: Treatment not Indicated Statins at discharge?: Yes Primary Dx Acute Ischemic CVA?: Yes IV tPA ordered during stay?: No Reason IV t-PA not ordered: Treatment not Indicated Code Visit Inpatient E&M: 34708 Disch Hosp
--- NOTE | 2019-11-12 12:19 | PHA.DC.MC ---
Pharmacy Service has performed discharge medication reconciliation and counseling for this patient. The patient's discharge medication list was reviewed for discrepancies and discrepancies were resolved. The patient was counseled on the following discharge medications and changes in medications for homegoing were reviewed. All medications from home medication list are new for this patient, all medications below were reviewed with patient and family. The Reason for Use, instructions for use, and potential side effects were reviewed for all new medications. The patient's questions regarding all of their medications were answered. Home Medications Amlodipine [Norvasc] 10 mg PO DAILY 30 Days #30 tab 11/12/19 Aspirin [Aspirin, Baby] 81 mg PO DAILY@0800 30 Days #30 tab.chew 11/12/19 Atorvastatin Calcium [Lipitor] 80 mg PO QHS 30 Days #30 tab 11/12/19 Carvedilol [Coreg (Beta Tim)] 6.25 mg PO BID 30 Days #30 tab 11/12/19 Famotidine [Pepcid] 20 mg PO DAILY 30 Days #30 tab 11/12/19 The patient was able to verbally demonstrate an understanding of their discharge medications.
--- NOTE | 2019-11-12 13:17 | NURSING ---
Reviewed and agreed on all charting with Lali Mcadams RN
== END 2019-11-12 13:11 | disposition home or self-care (01) | DRG 65 ==
LOC: ED 11:52 → PCU 11:54
PROVIDERS: Admitting Provider Internal Medicine; Emergency Provider Emergency Medicine; PCP Internal Medicine; Visit Provider Internal Medicine
DX: I63.81 Other cerebral infarction due to occlusion or stenosis of small artery (principal); Z68.41 Body mass index [BMI] 40.0-44.9, adult; E66.01 Morbid (severe) obesity due to excess calories; I16.0 Hypertensive urgency; R29.810 Facial weakness; E78.5 Hyperlipidemia, unspecified; R29.701 NIHSS score 1
CPT/HCPCS: 36415; 70450; 70496; 70498; 70551; 71045; 80048; 80061; 83036; 84484; 85025; 92523; 92610; 93005; 93306; 94762; 97116; 97161; 97166; 97530; 97802; 99251; 99283; J7030; Q9957; Q9967; A4216; G0463

== ENCOUNTER 2020-01-21 09:00 | Outpatient (RCR) | payer BC, OTHER, SELFPAY ==
[2019-11-12 13:16] VITALS: BMI 39.2
--- NOTE | 2019-12-17 10:31 | HP.OTEVAL ---
Patient's Visit Information SUNIL CHEN is a 59 year old M, referred to Occupational Therapy by Maria Teresa Gregorio DO, with a diagnosis of CVA L side. Date of Evaluation: 12/17/19 Occupational Therapist: Bere Lewis - Subjective Subjective: Pt seen fo initial occupational therapy evaluation for CVA that occurred 11/10/19 demonstrating decreased coordination and strength of L UE. Pt was in hospital for 3 days then returned home w/ spouse. Pt lives w/ spouse, 3 steps to enter 1 HR left side. 1 story house with basement, goes down to basement frequently. Drives. Has walk in shower and tub/shower available, uses walk in shower in basement, grab bars, stands for shower, HHS available but doesn't need it, std toilet seat basement and comfort height commodes upstairs main level. AMB no device. Unemployed at time. Now has difficulty with fine motor and coordination tasks. Pt states he has a difficult time letting go of objects or the stair rail with his left hand and typing at the computer. Hobbies; internet, gardening. No animals to care for at home. Spouse able to assist as needed. Pt states he has started walking 50 minutes a day on [employer]. - Objective Objective/Observation: pt demo decreased coordination and strength of L hand limiting indep w/ BADL/IADL tasks - ROM ROM Comments: CRYSTAL WFL - Strength Range Aid: R 120#, L 65# Lateral Pinch: R 19#, L 8# Tripod Pinch: R 18#, L 10# Strength Comments: R hand dominent. Generalized MMT R 4+/5, L 4/5 - Edema Other: No edema noted. - Sensation Sensation Comments: No numbness or tingling noted. 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 Pt will progress w/ L hand lateral pinch from 8# to 16# to assist w/ IADL tasks independently by d/c from OT services. Goal:: Pt will demo increased coordination skills of L hand to complete 9 hole peg test left hand from 39 seconds to 25 seconds by d/c from OT services. Goal:: Pt will be educated on diagnosis and L hand coordination activities to complete at home with good understanding and demo 100%x Goal:: Pt will be educated on L UE HEP with good understanding and demo 100%x. - Rehabilitation General Assessment: Pt seen fo initial occupational therapy evaluation for CVA that occurred 11/10/19 demonstrating decreased coordination and strength of L UE. Pt demonstrates decreased coordination skills to complete BADL/IADL tasks and decreased strength of L UE all indicating a need for skilled OT interventions to increase L hand coordination, L hand synthetic gem press operator and pinch strength and educate on an appropriate L UE HEP to increase pts ability to return to PLOF 1x/wk x 4-6wks. Rehabilitation Potential: Excellent - Anticipated Interventions Anticipated Interventions: Strengthening, Joint Protection/Energy Conservation, Ergonomic Education, Fine Motor Coord/Adriano, Neuro Reeducation, ADL Training, Education re assistive Equipment, Education re Diagnosis, Home Program - Visit Plan Frequency: 1x/Week Duration: 4-6 Weeks General Plan: Pt seen fo initial occupational therapy evaluation for CVA that occurred 11/10/19 demonstrating decreased coordination and strength of L UE. Pt demonstrates decreased coordination skills to complete BADL/IADL tasks and decreased strength of L UE all indicating a need for skilled OT interventions to increase L hand coordination, L hand synthetic gem press operator and pinch strength and educate on an appropriate L UE HEP to increase pts ability to return to PLOF 1x/wk x 4-6wks. TEXT: Thank you for the opportunity to evaluate your patient. For Medicare and Medicare HMO plans, please review the plan of care and approve it. It will need to be FAXED BACK to us at [phone] for Medicare purposes. Please let me know if there are questions or concerns regarding this plan of care. Physician Signature: Date:
--- NOTE | 2019-12-17 10:57 | HP.PTEVAL ---
Patient's Visit Information SUNIL CHEN is a 59 year old M referred to Physical Therapy by Maria Teresa Gregorio DO with a diagnosis of CVA. Date of Evaluation: 12/17/19 Physical Therapist: Aquiles Swann, PT, ATC - Visit Plan Plan: Skilled PT is not necessary at this time. Pt is discharged - Subjective Findings: CVA: 11/10/19. Pt believes he may have had the stroke sometime in the night. Pt awoke that morning and while speaking to his daughter, she relaized his face was drooping and told him to go to the ER. Pt reports as far as residual effects are concerned, his leg becomes weak and he drags his toes on the ground. Pt reports he also has lost strength and coordination in his L UE. Pt reports he has had one fall since his CVA. Pt reports he is very concerned with stair negotiation secondary to feeling unstable. Pt is R hand dominant. Pt reports no pain this date. - Objective Neuro: B LE sensation is WNL to light touch. B patellar reflex= 2/3. ROM: B LE's are WFL at this time. MMT: R LE grossly 5/5 throughout. L LE grossly 4+/5 throughout. Gait: Pt ambulated without deviations this date. FGA: - Balance Scores Functional Gait Assessment Score: 29 % Disability: 3.3400 - Rehabilitation Potential Physical Therapy Diagnosis: Pt had LE deviations which have mostly resolved from a recent CVA Rehabilitation Potential: Excellent - Anticipated Interventions Thank you for the opportunity to evaluate your patient. For Medicare and Medicare HMO plans, please review the plan of care and approve it. It will need to be FAXED BACK to us at [phone] for Medicare purposes. For Medicare only, by signing this I certify the plan of care. Please let me know if there are questions or concerns regarding this plan of care. Physician Signature: Date:
--- NOTE | 2020-01-03 08:00 | SOAP_ITS ---
REASON FOR REFERRAL: The Patient is a 59 year old male referred for a clinical assessment of the Patients communication abilities at [facility] on 01/03/2020 due to persistent dysarthria secondary to a recent cerebrovascular accident involving the right neostriatum The Patient?s was present for the evaluation, and provided details regarding the Patient?s current level of functioning. Following the stroke, both the Patient and his report intermittent mild difficulties with communication associated with his left sided facial asymmetries, though this again is improving. Both report some persisting issues with visuospatial functioning (states he occasionally runs into things on the left, and initially would demonstrate inconsistent eye contact) and executive regulation / emotional continence (somewhat heightened emotional response), though both have improved and reached near baseline functioning. He further reported initial difficulties with concentration that occurred in conjunction with fatigue, though again this is improving. He denies any further issues with attention, memory, or communication. The Patient reports initial occasional post prandial coughing (no more than once per week over the initial few weeks post CVA), though denies the presence of dysphagia / denies any overt signs and symptoms of aspiration following the initial few weeks, and denies any current or previous issues with aspiration related pulmonary complications, to include pneumonia, bronchitis, or unexplained asthma symptoms. Both report no concerns with intake sufficiency and prefer focus on communication functioning. The Patient is fully ambulatory, no difficulties with posture maintenance, and appears well nourished. 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 MEDICAL HISTORY: Cerebrovascular accident involving the right neostriatum, BMI greater than 40. PREVIOUS MODIFIED BARIUM SWALLOW STUDY: None ADDITIONAL OBJECTIVE ASSESSMENT RESULTS: 11/10/2019 MRI revealed an acute or subacute infarct neostriatum on the right 11/10/2019 chest x-ray revealed cardiomegaly; clear lungs. FUNCTIONAL STATUS ASSESSMENT RESULTS: PADGETT INDEX OF INDEPENDENCE IN ACTIVITIES OF DAILY LIVIN/6 BATHIN DRESSIN TOILETIN TRANSFERRIN CONTINENCE: 1 FEEDIN VENU-TAM INSTRUMENTAL ACTIVITIES OF DAILY LIVING SCALE (IADL): 8/8 ABILITY TO USE THE TELEPHONE: 1 SHOPPIN FOOD PREPARATION: 1 HOUSEKEEPIN LAUNDRY: 1 MODE OF TRANSPORTATION: 1 RESPONSIBILITY FOR OWN MEDICATION: 1 ABILITY TO HANDLE FINANCES: 1 STROKE IMPACT SCALE ? VERSION 3 (SIS v.3): PHYSICAL PROBLEMS: MEMORY / THINKIN/35 PSYCHOSOCIAL FUNCTIONIN45 COMMUNICATION ABILITIES: 3435 DAILY ACTIVITIES: 4450 MOBILITY: HEMIPARESIS: ACTIVITY PARTICIPATION: TOTAL SCORE: 268/295 RECOVERY SCALE: 85/100 100 = fully recovered; 0 = no recovery FUNCTIONAL AMBULATION CATEGORY (FAC): 5 (ambulator- independent) ORAL MOTOR / MODIFIED CRANIAL NERVE ASSESSMENT: CNVII impaired; left facial asymmetry at rest, left labial asymmetry at rest, left labial asymmetry upon retraction / protrusion; CNIX impaired; left palatal asymmetry; CNXII impaired; left lingual drift; natural upper / lower dentition good repair, no odontalgia (toothache); moist pinkish appearance to the oral mucosa without xerostomia (dry mouth); no halitosis (bad breath); no diurnal sialorrhea (drooling during daytime); appropriate volitional cough intensity; no reported or identified signs or symptoms suggesting trismus; no vocal abnormalities; trace dysarthria. COGNITIVE COMMUNICATION ASSESSMENT RESULTS (QUANTITATIVE): TRIAL MAKING TEST (TMT): PART A: 30 seconds (> 78 seconds abnormal) PART A Errors: 0 PART B: 112 seconds (> 273 seconds abnormal) PART B Errors: 0 BELLS TEST: CORRECT: 35/35 TOTAL TIME: 3:11 OMISSIONS (RIGHT): 0 (> 6 suggests right visual disturbance) OMISSIONS (LEFT): 0 (> 6 suggests o left visual neglect) OMISSIONS (TOTAL): 0 (> 3 suggests an attentional deficit) DISTRACTORS: 0/264 SCANNING STRATEGY: left to right; double checks with items identified predominantly on left (3) APHASIA SEVERITY RATING SCALE (ASRS): 5 (no discernible aphasia handicap) APRAXIA OF SPEECH RATING SCALE (ASRS-v1): 0 (not present) COGNITIVE COMMUNICATION ASSESSMENT RESULTS (QUALITATIVE): LANGUAGE FUNCTIONING: mild dysarthria characterized by misarticulations secondary to left facial asymmetries with appropriate prosody; no aphasia, anomia, apraxia, disfluent speech, alexia, or agraphia. EXECUTIVE FUNCTIONING: no clinically significant issues processing speed (bradyphrenia) noted upon assessment; sufficient self-awareness / metacognitive functioning demonstrated; no clear behavioral attributes (such as apathy or agitation), though he does report heightened emotional responses that may be appropriate given the recent medical issues (emotionally telling his family that he loves them; quicker to become tearful), though he does become frustrated more (may occur in tandem with fatigue), possibly suggesting emotional incontinence, this was not appreciated this date. MEMORY: no indicators suggesting issues with short-term memory, working memory, or long-term memory ATTENTION: no issues with attention functioning identified throughout the assessment. VISUOSPATIAL ABILITIES: initial neglect of stimulus items located on the far left of the Patients visual field, though he was able to identify all items following multiple self-initiated re-checks; he would occasionally break eye contact during conversation when the clinician would re-position within the room around 45 degrees from midline to the left, though it was unclear as to if this was a neglect; when paired with his subjective report I would recommend further testing throughout the intervention cycle to further clarify, as any deficit would be quite mild in functional impact given this presentation. VOICE: no vocal abnormalities appreciated. COMPLICATING FACTORS AND NOTABLE FINDINGS: complicating factors include depression / emotional incontinence as well as fluctuating post stroke fatigue that would be expected at this point of recovery (and anticipated to improve). RESULTS OF THE EVALUATION: The Patient presents with mild dysarthria (I69.322) secondary to a recent cerebrovascular accident involving the right neostriatum. RECOMMENDATIONS FOR INTERVENTION: The Patient requires continued skilled speech-language intervention targeting training / implementation of oral motor exercise targeting left labial, lingual, and soft palate functioning in addition to training and implementation of expressive communication strategies (over articulation) to facilitate improved communication intelligibility and optimal functional return. I will further recommend continued investigation into his visuospatial functioning (more-so given the) throughout the treatment cycle with goal adjustment as appropriate. POST ASSESSMENT EDUCATION: The Results and recommendations were discussed with the Patient and the Patients family immediately following completion of the assessment, with the Patient and the Patients family verbalizing understanding and agreement with all recommendations and education provided. We discussed recommended oral motor and velopharyngeal based exercises within his initial carryover program, with handouts provided detailing exercises. FUNCTIONAL OUTCOMES: OUTCOME 1: the Patient will demonstrate and utilize recommended oral strengthening exercises to facilitate improved oral strength and coordination with minimal cueing and prompting provide by the clinician, across 2 to 3 sessions. OUTCOME 2: the Patient will demonstrate and utilize recommended velopharyngeal strengthening exercises to facilitate improved velopharyngeal strength and coordination with minimal cueing and prompting provide by the clinician, across 2 to 3 sessions. OUTCOME 3: the Patient will independently demonstrate and utilize recommended compensatory articulation techniques (over-articulation) to facilitate improved speech intelligibility during expressive communication attempts with both familiar and unfamiliar listeners to facilitate highest level of independent functioning within the home environment and community independently / with less than 2 cues during session, in 2 out of 3 sessions. OUTCOME 4: goal adjustment as needed. Diego Sim M.A., CCC-ASIAN STUDIES PROGRAM CHAIR, CBIS MBSImP Certified, LSVT Certified [facility] Department [email or web address]
--- NOTE | 2020-01-21 12:55 | HP.OTDCSUM_ITS ---
It has been my pleasure to treat SUNIL CHEN under orders from Maria Teresa Gregorio DO, for the diagnosis of CVA L side for a total of 4 visit(s). Please see the following information for a summary of their discharge status. 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 Pt will progress w/ L hand lateral pinch from 8# to 16# to assist w/ IADL tasks independently by d/c from OT services. Goal:: Pt will demo increased coordination skills of L hand to complete 9 hole peg test left hand from 39 seconds to 25 seconds by d/c from OT services. Goal:: Pt will be educated on diagnosis and L hand coordination activities to complete at home with good understanding and demo 100%x Goal:: Pt will be educated on L UE HEP with good understanding and demo 100%x. Plan: d/c OT POC Discharge Comments: Pt has made great progress with OT goals. Pt has progressed w/ L school admissions representative strength from 65# to 97#. Pt has progressed with L lateral pinch from 8# to 14#. Pt has progressed wtih tripod pinch L hand from 10# to 15#. Pt states he is able to type on a computer again now with L hand and demo good understanding of L UE HEP with handouts provided. Pt decreased time on 9hole peg test to 32.8seconds. Pt no longer requires skilled OT services and pt agrees. Pt to continue with HEP for strength and coordination. D/C OT POC at this time. If there are questions or concerns regarding this patient's occupational therapy, please fell free to call me at [phone]. Thank you for the referral of this patient. Sincerely, Bere Lewis
--- NOTE | 2020-01-23 12:18 | HP.SP.DC ---
ST Discharge Summary - Discharged: Discharge: The Patient is a pleasant 59 year old male who attended 2 skilled speech-language intervention sessions spanning from 01/03/2020 to 01/09/2020 targeting persistent mild dysarthria secondary to a recent cerebrovascular accident involving the right neostriatum. The Patient participated in intervention sessions consisting of implementation of oral motor exercise targeting left labial, lingual, and soft palate functioning in addition to training and implementation of expressive communication strategies (over articulation) to facilitate improved communication intelligibility and optimal functional return, with excellent comprehension, implementation, and reported success. Following a conversation with the Patient via phone on 01/23/2020, the Patient reported feeling confident in completing the carryover regime established in session, with the Patient reporting all intervention goals have been met, with request to discharge from the caseload at this time, with this clinician in agreement with rational. We will advance with discharge from the skilled speech-language pathology caseload at this time, per Patent request, as all intervention goals have been achieved, though I would gladly re-initiate intervention as needed moving forward, as it has been a pleasure to work with him and his family.
== END 2020-01-21 19:00 | disposition home or self-care (01) ==
LOC: OT 09:00
PROVIDERS: PCP Internal Medicine; Referring Provider Internal Medicine; Visit Provider Internal Medicine
DX: I69.354 Hemiplegia and hemiparesis following cerebral infarction affecting left non-dominant side (principal); R26.89 Other abnormalities of gait and mobility; G25.89 Other specified extrapyramidal and movement disorders; R29.810 Facial weakness; R47.81 Slurred speech
CPT/HCPCS: 92507; 92523; 97110; 97161; 97165; 97166; 97530

== ENCOUNTER → 2020-02-14 10:57 | Outpatient (CLI) | payer BC, OTHER, SELFPAY ==
[2019-11-12 13:16] VITALS: BMI 39.2
== END ==
PROVIDERS: PCP Internal Medicine; Referring Provider Internal Medicine; Visit Provider Internal Medicine
DX: I49.3 Ventricular premature depolarization (principal)
CPT/HCPCS: 93225; 93226

== ENCOUNTER → 2020-03-03 09:47 | Outpatient (CLI) | payer BC, OTHER, SELFPAY ==
[2020-02-28 08:58] VITALS: BMI 37.5
--- NOTE | 2020-03-03 12:49 | STRESSREP ---
Stress Test Report Date: 03-03-2020 Procedure: Exercise tolerance test Indications: PVCs Consent: Per the patient Procedure: The patient exercised on a Rupert protocol for 8 minutes completing Stage 2 and 2 minutes of Stage III achieving a peak heart rate of 162 bpm (101 % predicted maximal heart rate) with a peak blood pressure 200/70 mmHg and a peak MET capacity of approximately 9 MET's. The baseline ECG demonstrated sinus bradycardia. The peak exercise ECG demonstrated an linked mediums the appearance of approximately 1 to [address] segment depression in leads II, III, aVF, and approximately 1 to [address] segment depression in leads V4 through V6 with resolution towards baseline beginning less than 1 minute in recovery. There were occasional PVCs pretest, during exercise, and recovery as well as intermittent ventricular bigeminy during recovery. The functional capacity was considered good. The patient had no complaint of chest discomfort during exercise or recovery. The examination was discontinued secondary to shortness of breath/dyspnea. Impression: 1. Technically adequate (percent predicted maximal heart rate greater than 85%) exercise tolerance test 2. Peak exercise ECG with linked medians demonstrating the appearance of approximately 1 to [address] segment depression in leads II, III, and aVF and approximately 1 to [address] segment depression in leads V4 through V6 with resolution towards baseline begetting less than 1 minute in recovery 3. There were occasional PVCs pretest, during exercise, and recovery as well as intermittent ventricular bigeminy during recovery This note was generated with [employer] software. It may contain incorrect words, spelling, and punctuation that were not noted in checking the note before signing.
== END ==
PROVIDERS: PCP Internal Medicine; Referring Provider Internal Medicine Cardiovascular Disease; Visit Provider Internal Medicine Cardiovascular Disease
DX: I49.3 Ventricular premature depolarization (principal); E78.5 Hyperlipidemia, unspecified; I10 Essential (primary) hypertension
CPT/HCPCS: 93017

== ENCOUNTER → 2020-03-06 10:06 | Outpatient (CLI) | payer BC, OTHER, SELFPAY ==
[2020-02-28 08:58] VITALS: BMI 37.5
[2020-03-06 11:08] LABS: Hematocrit 40.6 % (40-54); Hemoglobin 13.1 g/dL (13.0-16.5); Mean Corp Hgb Conc 32.3 g/dL (32-36); Mean Corpuscular Hgb 29.2 pg (27.0-32.0); Mean Corpuscular Volume 90.6 fL (80-94); Mean Platelet Vol. 9.2 fl (6.2-12.0); Platelet Count 220 K/mm3 (150-450); RBC Distribution Width CV 13.9 % (11.6-14.6); RBC Distribution Width SD 46.1 fl (35.1-43.9); Red Blood Count 4.48 M/mm3 (4.6-6.2); White Blood Count 7.7 K/mm3 (4.4-11.0)
[2020-03-06 11:15] LABS: International Normalized Ratio 1.1; Prothrombin Time (Protime)PT. 13.7 SECONDS (11.7-14.9)
[2020-03-06 11:16] LABS: Partial Thromboplast Time 28.8 Seconds (24.1-36.2)
[2020-03-06 11:35] LABS: Anion Gap 4 (5-15); BUN 18 mg/dL (7-18); BUN/Creat Ratio 17.6 RATIO (10-20); Chloride 109 mmol/L (98-107); Creatinine, Serum 1.02 mg/dL (0.70-1.30); EST Glomerular Filtration Rate 79 mL/min (>60); Est Glom Filt Rate - Afr Amer 95 mL/min (>60); Glucose 116 mg/dL (74-106); Potassium 4.4 mmol/L (3.5-5.1); Sodium Level 141 mmol/L (136-145)
== END ==
PROVIDERS: PCP Internal Medicine; Referring Provider Internal Medicine Cardiovascular Disease; Visit Provider Internal Medicine Cardiovascular Disease
DX: I10 Essential (primary) hypertension (principal); I49.3 Ventricular premature depolarization; R53.83 Other fatigue; R94.31 Abnormal electrocardiogram [ECG] [EKG]; R94.39 Abnormal result of other cardiovascular function study
CPT/HCPCS: 36415; 80048; 85027; 85610; 85730

== ENCOUNTER 2020-03-12 07:29 | Day surgery (SDC) | payer BC, OTHER, SELFPAY ==
[2020-02-28 08:58] VITALS: BMI 37.5
--- NOTE | 2020-03-11 10:30 | PCM.HP.BLA ---
<Mckay Hill - Last Filed: 03/11/20 17:00> History and Physical Date of Admission: 03/12/20 Details: This is a 59-year-old white male who presents for [facility] superimposed on history of PVCs. He states that he believes he has had this condition since at least 1975. He states when he was being evaluated for entry into the [place] [employer] services he was told that he had an irregular heartbeat. However he states he was told at the time that he would most likely outlive all of us . He states the best of his knowledge she has never been told he has any other cardiac condition. More recently, status post evaluation of a CVA which occurred earlier this year which was thought to be related to his hypertension, his , who is an RN, has been monitoring his heart rate pattern. He states she has noted an irregularity compatible with PVCs. He can sense them occasionally. He states they have not interrupted his lifestyle. He does not necessarily complain of any resting or exertional chest discomforts. He has not had any orthopnea or PND. There is been no ongoing peripheral pitting edema. He denies any near syncopal or syncopal events. He states that he does not drink caffeine in the way of coffee. He does drink [employer] energy drinks . He states this helps gives him a pickup when he believes his blood pressure is low. He has undergone evaluation with an ECG at [facility] in October of this year. At that time per the report he had normal sinus rhythm with voltage criteria for LVH and a nonspecific T wave abnormality. His ECG was repeated today. He appeared to have sinus bradycardia with occasional PVCs. He has also undergone evaluation in January of this year with a 48-hour Holter monitor. He had sinus rhythm. He had occasional PACs and 1 4 beat atrial run as well as occasional PVCs, bigeminy, and trigeminy. He had no wide-complex runs. There were no symptoms reported. He had a transthoracic echocardiogram performed on 11-11-2019. The results are as noted below. He is also undergone laboratory profile in January of this year by his PCP. His potassium was 4.7. His thyroid function studies appear to be reported within normal range. He underwent a stress test on 03/03/2020 that was considered to be abnormal based on ECG changes and also noting ventricular ectopy. Because of this, it was recommended that he proceed with left heart catheterization to further evaluate. Intake Vital Signs: See EMR Intake Visit Reasons: [facility] Allergies Penicillins Allergy (Verified 02/28/20 08:58) Rash Medications See EMR [facility] Medical History Dyslipidemia (Chronic) CHRISTINE (obstructive sleep apnea) (Chronic) Premature ventricular contraction (Acute) Essential hypertension (Chronic) CVA (cerebral vascular accident) (Acute) Facial droop (Acute) Hypertensive crisis (Acute) BMI greater than 40 (Chronic) Family History Father Myocardial infarction CAD (coronary artery disease) Sister Diabetes Other Heart disease Social History (Updated 02/28/20 @ 10:[address] Eloy Izquierdo MD) Smoking Status: Never smoker alcohol intake: never substance use type: does not use caffeine: Yes (occasional) ROS Const Const: Positive for fatigue (improving since CVA) and weakness (Lt UE due to recent CVA); negative for frequent falls, excessive sweating, weight gain or weight loss Eyes Eyes: Negative for transient loss of vision, blurry vision or change in vision ENT ENT: Positive for balance problems (slight ); negative for dizziness Cardio Chest Pain: No Palpitations: Yes (daily, increased frequency) feels like its: skipping Edema: None Muscle aches with walking: None Resp Respiratory: Positive for other (HX CHRISTINE wears CPAP @ HS); negative for SOB with activity or SOB at rest GI GI: Negative vomiting or vomiting blood/hematemesis : Negative for hematuria Musc Musc: Positive for balance problems (slight ); negative for muscle aches/ myalgia, muscle weakness or joint pain Skin Skin: Negative non-healing lesions or rash Neuro Neuro: Positive for lightheadedness (when fatigued) and weakness (Lt UE due to recent CVA); negative for dizziness, orthostatic symptoms, frequent falls or blurry vision Bala Hematologic/Lymphatic: Negative for easy bleeding Endo Endo: Positive for fatigue (improving since CVA); negative for excessive sweating Psych Psych: Negative for anxiety or depression Allergy Allergy/Immunology: Negative for hives, Negative for rash Cardiology Exam Const Appearance: cooperative, healthy appearing, comfortable, no acute distress, well developed and well groomed Nutritional Appearance: overweight Orientation: alert, awake and oriented x3 Head Head: normal to inspection, normocephalic and atraumatic Ears: hearing grossly normal bilaterally Nose: external nose normal Face and Sinus: face symmetric Mouth: oral mucosae normal Teeth and gingiva: dentition normal Eyes Eyelids: eyelids normal Conjunctivae: conjunctivae normal Pupils: PERRL EOM: EOM intact bilaterally Neck Neck: normal visual inspection and full ROM Carotids: normal carotid upstroke Chest Chest inspection: normal inspection of the chest, symmetric chest movement and normal respiratory effort Auscultation: Bilateral: Clear to Auscultation Cardio Palpation: normal PMI Rate: regular rate Rhythm: regular rhythm Heart sounds: S1 normal and S2 normal GI GI: normal to inspection, soft and bowel sounds present Neuro General: alert, awake and oriented x3 Skin Skin: no rashes or lesions noted Extremities Pulses: Normal: Right Radial Pulse, Left Radial Pulse Lower Extremity Edema: None: Bilateral Psych Psychological: normal affect Assessment & Plan 1. PVC (premature ventricular contraction) I49.3 Plan At the present time he does have a palpitations and findings compatible with both PACs and PVCs. He has had no complex ventricular dysrhythmias. He previously underwent laboratory studies, a 48-hour Holter monitor, and a transthoracic echocardiogram. The results are noted and have been discussed with him. He proceeded to undergo a stress test to evaluate further. As noted above, this was considered to be abnormal based on ECG findings. Thus, he will proceed with heart catheterization to assess further. Based on results, further recommendation be made. Otherwise he will continue his current medical therapy which does include a beta-ratna. 2. Dyslipidemia E78.5 Plan He will continue lipid-lowering therapy. 3. Essential hypertension I10 Plan His blood pressure appears to be controlled today. He will continue his current medical therapy. Plan Detail Additional Comments Thank you for allowing me to participate in the care of your patient. Please don't hesitate to call if any issues arise. This note was generated using a voice recognition system and there may be incorrect words, spelling or punctuation that were not noted when reviewing the office note prior to saving. <Eloy Izquierdo - Last Filed: 03/12/20 08:09> History and Physical Addendum: Date: 03-12-2020 I have examined the patient the following changes are noted: The patient has undergone additional evaluation with a treadmill stress test. Stress Test Report Date: 03-03-2020 Procedure: Exercise tolerance test Indications: PVCs Consent: Per the patient Procedure: The patient exercised on a Rupert protocol for 8 minutes completing Stage 2 and 2 minutes of Stage III achieving a peak heart rate of 162 bpm (101 % predicted maximal heart rate) with a peak blood pressure 200/70 mmHg and a peak MET capacity of approximately 9 MET's. The baseline ECG demonstrated sinus bradycardia. The peak exercise ECG demonstrated an linked mediums the appearance of approximately 1 to [address] segment depression in leads II, III, aVF, and approximately 1 to [address] segment depression in leads V4 through V6 with resolution towards baseline beginning less than 1 minute in recovery. There were occasional PVCs pretest, during exercise, and recovery as well as intermittent ventricular bigeminy during recovery. The functional capacity was considered good. The patient had no complaint of chest discomfort during exercise or recovery. The examination was discontinued secondary to shortness of breath/dyspnea. Impression: 1. Technically adequate (percent predicted maximal heart rate greater than 85%) exercise tolerance test 2. Peak exercise ECG with linked medians demonstrating the appearance of approximately 1 to [address] segment depression in leads II, III, and aVF and approximately 1 to [address] segment depression in leads V4 through V6 with resolution towards baseline begetting less than 1 minute in recovery 3. There were occasional PVCs pretest, during exercise, and recovery as well as intermittent ventricular bigeminy during recovery Based upon the above information the recommendation has been made for the patient to proceed with further evaluation with diagnostic cardiac catheterization and possible coronary artery revascularization therapy as deemed appropriate. The procedure and risks were discussed with the patient and he agrees with the above approach. This note was generated using a voice recognition system and there may be incorrect words, spelling or punctuation that were not noted when reviewing the office note prior to saving. Essential Procedure Criteria Procedure Essential: Yes Criteria Note: On 01/07/2020 the [place] [facility] of [facility] ([facility]) Public Order signed by [facility] Director Maddie Valentin M.D., regarding the Management of Non-Essential Surgeries and Procedures for the purpose of preserving Personal Protective Equipment (PPE) and critical hospital capacity and resources within [place] went into effect as of 01/08/2020 at 5:00PM. According to the [facility] Public Order: This action will remain in full force and effect until the State of Emergency declared by the Governor no longer exists or the Director of the [facility] rescinds or modifies this Order.. This [facility] order stated all non-essential or elective surgeries and procedures that utilize PPE should be delayed unless there is undue risk to the current or future health of a patient. After reviewing the aforementioned [facility] Public Order and the patients clinical case, I have determined that the scheduled procedure meets the criteria to go forward. Risk to Patient if Procedure Delayed: Threat of permanent dysfunction of an extremity or organ if delayed - Abnormal stress test
[2020-03-11 11:14] VITALS: BMI 37.4
--- NOTE | 2020-03-12 10:13 | CL.D_ITS ---
Patient Name: SUNIL CHEN Study Date: 03/12/2020 Performing: Eloy Izquierdo MD Ht: 66.92 inches 170 cm : 1960 Wt: 238.1 lbs 108 kg Age: 59 Gender: male BSA: 2.18 PROCEDURE(S) PERFORMED [id number]/LV CLINICAL PROFILE AND INDICATIONS Indications: Suspected CAD Heart Failure: None Stress/Imaging Date: 03/03/2020 Angina Classification Anginal Classification w/in 2 Weeks: Anginal Equivalent Dyspnea CAD Presentations: Other: palpitations; dyspnea CONCLUSIONS Elevated Left Ventricular End Diastolic Pressure Normal LV size, wall motion,and systolic function LVEF: by LV gram 60 % [place] Multivessel CAD RECOMMENDATIONS Risk factor modification Medical therapy DESCRIPTION OF PROCEDURE The patient arrived to the procedure lab. The risks and benefits of the procedure as well as a full d escription of our services here and current unavailability of surgical backup were fully explained to the patient and/or their significant other prior to the catheterization. The Timeout was completed, verifying the correct patient and procedure. The patient's procedural site was prepped and draped in the usual fashion. Local anesthetic was given subcutaneously to right radial region with Lidocaine 2% . Using a modified Seldinger technique, arterial access was obtained via the right radial artery, a 6 Fr sheath was inserted. Left Coronary Artery selective angiography was performed in multiple views u sing a 5 Fr. 4.0 [place] catheter. Right Coronary Artery selective angiography was then performed in mu ltiple views using a 5 Fr. 3DRC (Theo) catheter. Left Ventriculography was performed in THOMAS proje ction using a 5 Fr. Pigtail catheter. LV to AO pullback pressures were then recorded.The arterial sheath was pulled and a TR Band was applied for hemostasis- 12 cc air CORONARY ANGIOGRAPHY DOMINANCE: Right Dominant LEFT HEART ASSESSMENT Left Ventricular Ejection Fraction: by LV Gram 60 % Normal LV wall motion Elevated Left Ventricular End Diastolic Pressure LVEDP: 20 mmHg LEFT MAIN: Angiographically normal LEFT ANTERIOR DESCENDING ARTERY: Mild luminal irregularities MID LAD: 25 % Stenosis CIRCUMFLEX ARTERY: Mild luminal irregularities OM 1: Proximal - small caliber vessel: one[place] bend: 50 % Stenosis RIGHT CORONARY ARTERY: Mild luminal irregularities AORTIC ROOT: Angiographically normal COMPLICATIONS No Complications PROCEDURE MEDICATIONS Versed 1 mg IV Fentanyl 50 mcg IV Oxygen: 2 L/min via nasal cannula Heparin diluted in 23cc Heparinized saline. Patient given 10cc IA of this solution. 03/12/2020 09:21: 05 SUMMARY OF HEMODYNAMIC DATA Time AIR REST ECG 08:13:55 LV 149/-11, 18 09:35:27 LV 146/-10, 20 09:35:34 LV 145/-9, 19 09:36:26 LVp 149/-6, 16 09:36:34 AOp 149/67 (100) 09:36:39 Signed By Eloy Izquierdo MD On 03/12/2020 10:12:53 Eloy Izquierdo MD
== END 2020-03-12 12:48 | disposition home or self-care (01) ==
PROVIDERS: PCP Internal Medicine; Referring Provider Internal Medicine Cardiovascular Disease; Visit Provider Internal Medicine Cardiovascular Disease
DX: I25.10 Atherosclerotic heart disease of native coronary artery without angina pectoris (principal); I49.3 Ventricular premature depolarization; I10 Essential (primary) hypertension; E78.5 Hyperlipidemia, unspecified; G47.33 Obstructive sleep apnea (adult) (pediatric); Z86.73 Personal history of transient ischemic attack (TIA), and cerebral infarction without residual deficits; Z79.82 Long term (current) use of aspirin; Z79.02 Long term (current) use of antithrombotics/antiplatelets; Z79.899 Other long term (current) drug therapy
CPT/HCPCS: 93005; 93458; 99152; 99153; J7040; C1769; C1894; Q9967

== ENCOUNTER → 2020-08-19 14:23 | Outpatient (CLI) | payer BC, OTHER, SELFPAY ==
[2020-03-11 11:14] VITALS: BMI 37.4
--- NOTE | 2020-08-19 14:31 | MRI_ITS ---
STUDY: MRI BRAIN WITHOUT CONTRAST REASON FOR EXAM: Male, 60 years old. slurred speech, thick tongue TECHNIQUE: Standardized multiplanar fat and water weighted pulse sequences were obtained. COMPARISON: 11/10/2019 FINDINGS: Normal size of the ventricles and extra-axial spaces for the patient''s age. Normal white matter tracts of the supratentorial brain. There is no evidence for recent intracranial ischemia or other cause of cytotoxic edema on diffusion weighted imaging (DWI). Normal T2* images of the brain without demonstrated susceptibility artifact. There is no demonstrated hemosiderin stain. Chronic lacunar infarct of the right basal ganglia. Normal thalami. There is no extra-axial fluid accumulation. Normal flow voids within the major intracranial circulation suggesting patency by spin echo criteria. Normal sella turcica, pituitary gland, infundibular stalk, optic chiasm and hypothalamus. Normal tectal plate and pineal gland. Normal midbrain, vitaliy and medulla. Normal cerebellum. Normal basal cisterns. Normal bilateral temporal bones. Normal bilateral internal auditory canals. No demonstrated orbital abnormality, within the constraints of a routine brain study. Normal visualized paranasal sinuses. Normal calvarium and skull base. Normal visualized soft tissue structures. Normal visualized upper cervical spine. MRI/Brain without Contrast IMPRESSION: Chronic lacunar infarct of the right basal ganglia. No acute infarct. Electronically Signed: Collin Champion MD at 16:18 EDT Tel , Service support ,
== END ==
PROVIDERS: PCP Nurse Practitioner; Referring Provider Nurse Practitioner; Visit Provider Nurse Practitioner
DX: Q67.0 Congenital facial asymmetry (principal)
CPT/HCPCS: 70551

== ENCOUNTER 2021-06-25 16:36 | Outpatient (CLI) | payer BC, SELFPAY ==
[2021-06-25 16:48] VITALS: BP 127/57; PULSE 66; RESP 16; TEMP 38.1; O2SAT 96; BMI 37.4
[2021-06-25] MEDS: 0.9% Saline Lock 10 ML Syringe IV (16:58)
[2021-06-25] MEDS: Acetaminophen 325 MG Tablet 650 MG PO (16:58)
[2021-06-25 17:39] VITALS: BP 131/58; PULSE 65; RESP 20; TEMP 39.5; O2SAT 93
[2021-06-25 18:27] VITALS: TEMP 36.8
[2021-06-25 18:39] VITALS: BP 113/58; PULSE 62; RESP 18; TEMP 37.9; O2SAT 95
== END 2021-06-25 18:45 | disposition home or self-care (01) ==
LOC: MS2OUT 16:36 → MS2 16:37
PROVIDERS: PCP Nurse Practitioner; Referring Provider Nurse Practitioner Acute Care; Visit Provider Nurse Practitioner Acute Care
DX: Z23 Encounter for immunization (principal); U07.1 COVID-19
CPT/HCPCS: J7050; M0243; A4216; Q0244

== ENCOUNTER → 2023-01-13 | Outpatient (CLI) | payer OTHER, SELFPAY ==
[2023-01-13 13:14] LABS: Bacteria 0 SEEN /hpf (None Seen); Mucous, Urine 0 SEEN /hpf (<or=2+); Red Blood Cells-Urine 0 SEEN /hpf (0-5); Squamous Epithelial Cells - UA 0 SEEN /hpf (0-5); White Blood Cells 0 SEEN /hpf (0-5)
[2023-01-13 13:25] LABS: Absolute Lymphocyte Count 2.16 X10^3/uL (0.83-4.51); Basophil# 0.05 X10^3/uL; Basophil% 0.6 % (0-1); Eosinophil# 0.24 X10^3/uL; Hematocrit 43.3 % (40-54); Hemoglobin 14.7 g/dL (13.0-16.5); Lymphocyte # 2.16 X10^3/ul (0.83-4.51); Lymphocyte % 26.9 % (19-41); Mean Corp Hgb Conc 33.9 g/dL (32-36); Mean Corpuscular Hgb 29.9 pg (27.0-32.0); Mean Platelet Vol. 9.2 fl (6.2-12.0); Monocyte# 0.55 X10^3/uL; Monocyte% 6.8 % (0-10); NRBC Flagged by Analyzer 0 % (0-5); Neutrophil # 5.01 X10^3/uL (2.7-7.7); Neutrophil % 62.3 % (47-70); Platelet Count 207 K/mm3 (150-450); RBC Distribution Width SD 45.1 fl (35.1-43.9); Red Blood Count 4.92 M/mm3 (4.6-6.2)
[2023-01-13 13:29] LABS: Color, Urine Yellow (Yellow); Glucose, Dipstick Normal (Normal); Ketone-Dipstick Negative (Negative); Leukocyte Esterase-Dipstick Negative /ul (Negative); Nitrite-Dipstick Negative (Negative); Occult Blood-Urine Negative /ul (Negative); Protein-Dipstick Negative (Negative); Specific Gravity, Urine 1.015 (1.002-1.030); Urine Bilirubin Dipstick Negative (Negative); Urine Clarity Clear (Clear); Urine Urobilinogen Normal (Normal)
[2023-01-13 13:41] LABS: Vitamin D,25 Hydroxy 59.6 ng/mL
[2023-01-13 13:48] LABS: ALB/GLOB Ratio 1.3 RATIO (0.9-2.4); AST(SGOT) 23 U/L (15-37); Alanine Aminotransfer ALT/SGPT 51 U/L (16-61); Albumin, Serum 3.9 g/dL (3.2-5.0); Alkaline Phosphatase 113 U/L (45-117); Anion Gap 6 (5-15); BUN 16 mg/dL (7-18); BUN/Creat Ratio 14.7 RATIO (10-20); Calcium,Total 8.8 mg/dL (8.5-10.1); Chloride 104 mmol/L (98-107); Cholesterol 140 mg/dL (200); Creatinine, Serum 1.09 mg/dL (0.70-1.30); EST Glomerular Filtration Rate 72 mL/min (>60); Est Glom Filt Rate - Afr Amer 88 mL/min (>60); Glucose 116 mg/dL (74-106); High Density Lipoprotein 34 mg/dL; Potassium 4.3 mmol/L (3.5-5.1); Protein, Total 6.9 g/dL (6.4-8.2); Sodium Level 139 mmol/L (136-145); Triglycerides 148 mg/dL; Very Low Density Lipoprotein 30 mg/dL (5-40)
[2023-01-13 13:50] LABS: Microalbumin,Random Urine 7.8 mg/L (NO RANGE EST.)
== END | disposition home or self-care (01) ==
LOC: LABSPEC 12:49
PROVIDERS: PCP Internal Medicine; Referring Provider Internal Medicine; Visit Provider Internal Medicine
DX: R73.09 Other abnormal glucose (principal); E55.9 Vitamin D deficiency, unspecified; E78.5 Hyperlipidemia, unspecified
CPT/HCPCS: 80053; 80061; 81001; 82043; 82306; 83036; 84443; 85025

== ENCOUNTER → 2024-05-07 | Outpatient (CLI) | payer MEDICARE, OTHER, SELFPAY ==
[2024-05-07 11:56] LABS: PSA,Total- Diagnostic 5.12 ng/mL (0.0-4.0)
== END | disposition home or self-care (01) ==
PROVIDERS: PCP Internal Medicine; Referring Provider Nurse Practitioner; Visit Provider Nurse Practitioner
DX: R97.20 Elevated prostate specific antigen [PSA] (principal)
CPT/HCPCS: 36415; 84153

== ENCOUNTER → 2025-05-07 | Outpatient (CLI) | payer MEDICARE, OTHER, SELFPAY ==
[2025-05-07 12:45] LABS: PSA,Total- Diagnostic 4.68 ng/mL (0.00-4.00)
== END | disposition home or self-care (01) ==
LOC: LAB 10:48
PROVIDERS: PCP Internal Medicine; Referring Provider Nurse Practitioner; Visit Provider Nurse Practitioner
DX: R97.20 Elevated prostate specific antigen [PSA] (principal)
CPT/HCPCS: 36415; 84153

== ENCOUNTER → 2025-07-29 | Outpatient (CLI) | payer MEDICARE, OTHER, SELFPAY ==
[2025-07-29 10:22] LABS: Red Blood Cells-Urine 0 SEEN /hpf (0-5); Squamous Epithelial Cells - UA 0 SEEN /hpf (0-5)
[2025-07-29 12:02] LABS: Hematocrit 41.6 % (40-54); Hemoglobin 13.9 g/dL (13.0-16.5); Immature Granulocytes Count 0.030 X10^3/uL (0.0-0.0); Mean Corp Hgb Conc 33.4 g/dL (32-36); Mean Corpuscular Volume 87.4 fL (80-94); Mean Platelet Vol. 9.1 fl (6.2-12.0); NRBC Flagged by Analyzer 0 % (0-5); Platelet Count 231 K/mm3 (150-450); RBC Distribution Width CV 13.8 % (11.6-14.6); RBC Distribution Width SD 44.1 fl (35.1-43.9); Red Blood Count 4.76 M/mm3 (4.6-6.2); White Blood Count 7.9 K/mm3 (4.4-11.0)
[2025-07-29 12:14] LABS: Color, Urine Yellow (Yellow); Glucose, Dipstick Normal (Normal); Ketone-Dipstick Negative (Negative); Leukocyte Esterase-Dipstick Negative /ul (Negative); Nitrite-Dipstick Negative (Negative); Occult Blood-Urine Negative /ul (Negative); Protein-Dipstick 15 mg/dl (Negative); Specific Gravity, Urine 1.015 (1.002-1.030); Urine Bilirubin Dipstick Negative (Negative)
[2025-07-29 12:28] LABS: Mucous, Urine 1+ /hpf (<or=2+)
[2025-07-29 12:38] LABS: Creatinine, Urine (random) 134.00 mg/dL (39.00-259.00); Microalbumin,Random Urine < 12.0 mg/L (<20 mg/L)
[2025-07-29 12:40] LABS: AST(SGOT) 18 U/L (<=37); Alanine Aminotransfer ALT/SGPT 17 U/L (<=46); Albumin, Serum 4.2 g/dL (3.4-4.8); Alkaline Phosphatase 85 U/L (40-129); Anion Gap 11 (5-15); BUN 16 mg/dL (4-19); BUN/Creat Ratio 15.1 RATIO (10-20); Calcium,Total 9.4 mg/dL (7.6-11.0); Carbon Dioxide 23.8 mmol/L (21.0-32.0); Chloride 104 mmol/L (98-108); Cholesterol 223 mg/dL (<=200); Globulin 2.8 g/dL (2.2-4.2); Glucose 115 mg/dL (70-99); Low Density Lipoprotein Calc. 156 mg/dL; Potassium 4.5 mmol/L (3.3-5.1); Triglycerides 143 mg/dL; Very Low Density Lipoprotein 29 mg/dL (5-40); cholesterol:hdl ratio screen 5.87
[2025-07-29 12:43] LABS: Vitamin D,25 Hydroxy 49.9 ng/mL (30-100)
== END | disposition home or self-care (01) ==
PROVIDERS: PCP Internal Medicine; Referring Provider Internal Medicine; Visit Provider Internal Medicine
DX: E55.9 Vitamin D deficiency, unspecified (principal); R73.09 Other abnormal glucose; E78.5 Hyperlipidemia, unspecified
CPT/HCPCS: 36415; 80053; 80061; 81001; 82043; 82306; 82570; 84443; 85025